=== PATIENT | female | born 1990 | race Caucasian/White ===

== ENCOUNTER 2022-05-07 03:02 | Emergency (ER) | payer OTHER ==
[2022-05-07 04:55] LABS: BUN/CREATININE RATIO 12 (0-10)
[2022-05-07 05:22] LABS: HEMOGLOBIN 13.2 gm/dl (12.3-15.3); RED BLOOD COUNT 4.55 M/UL (4.00-5.10); WHITE BLOOD COUNT 17.9 K/UL (4.5-11.0)
[2022-05-07] MEDS ORDERED: ZOFRAN 4 MG TAB4 MG PO (06:06)
[2022-05-07] MEDS ORDERED: MACRODANTIN100 MG PO (06:06)
== END 2022-05-07 06:30 | disposition home or self-care (01) ==
LOC: ER1 03:02
PROVIDERS: Emergency Medicine
DX: N39.0 Urinary tract infection, site not specified (principal); F31.9 Bipolar disorder, unspecified; R11.0 Nausea; Z79.899 Other long term (current) drug therapy
CPT/HCPCS: 71045; 80053; 81001; 83735; 84439; 84443; 84484; 84703; 85025; 93005; 99285